=== PATIENT | female | born 1985 | race Caucasian/White ===

== ENCOUNTER 2017-01-26 21:28 | Emergency (ER) | payer OTHER ==
[~2017-01-26] VITALS: Ht 152.4 cm; Wt 59.1 kg
[~2017-01-26 21:28] MED LIST: ALBU8.5H4 IH; BUDE90AE IH; CRES20T PO; DILT120C10 PO; LACT1CAP61 PO; MESA1.2T2 PO; OMEP40CA3 PO; [UNRECOGNIZED DRUG - OTHER]
[2017-01-26 21:34] VITALS: BP 111/66; PULSE 102; RESP 20; O2SAT 96
[2017-01-26 22:00] VITALS: BP 111/53; PULSE 91; RESP 16; O2SAT 95
[2017-01-26 22:24] LABS: BASOPHILS % (AUTO) 0.3 % (0-3); EOSINOPHILS % (AUTO) 1.3 % (0-5); MONOCYTES % (AUTO) 6.8 % (4-12); Mean Corpuscular Hemoglobin 30.7 pg (27.0-35.0); Mean Corpuscular Volume 89.6 fL (81-100); NEUTROPHILS % (AUTO) 84.4 % (40-74); Platelet Count 295 bil/L (150-400)
[2017-01-26 22:48] LABS: Magnesium 1.8 mg/dL (1.6-2.6)
--- NOTE | 2017-01-26 23:41 | ED.REPORT ---
HPI-Abd Pain F Under 38 Date of Service January 26, 2017 ED Provider: Rodolfo Grijalva MD Patient is a 31 year old female with history of ulcerative colitis since age 15 , she is on Mesalamine (Lialda), 4.8g daily, who presents to [facility] with bloody diarrhea, fever and abdominal cramping since this morning. Patient reports last flare about 2 months ago. She states she has not had a formed stool for about 2 weeks. She also states that she felt absolutely fine yesterday, but this morning she woke up with fever of 101F, muscle and joint pain, increased abdominal cramping and karla rectal bleeding. Patient stated she does not believe that her symptoms are well controlled with Mesalamine. Patient notes that her ulcerative colitis flares are associated with increased anxiety and heart rate. She also experiences heart burn, gas, and bloating for which she takes a Omeprazole daily. She denies any recent weight loss or skin rashes, but reports regular joint pain in her hands and hips. Patient denies headache, chest pain, shortness of breath, vomiting, dysuria. Nursing Notes Stated Complaint: GI BLEED,PAIN AND FEVER Chief Complaint: Female Abdominal Pain Nursing Notes Reviewed: Yes Allergies: Coded Allergies: acetaminophen (Verified Allergy, Severe, upset stomach, GI bleed, 12/15/15) hydrocodone bitartrate (Verified Allergy, Severe, upset stomach, GI bleed , 12/15/15) TAPE (Verified Allergy, Intermediate, rash that looks like a burn, 12/15/15 ) Scheduled Budesonide (Pulmicort Flexhaler) 1 Puff/90 Mcg Aerp 2 PUFF IH BID Diltiazem ER (Diltiazem ER) 120 Mg Cap.er.12h 120 MG PO DAILY Lact Cmb2/S.thermophl/Bif Cmb1 (Vsl#3 Capsule) 1 Each Capsule 1 EACH PO BID Mesalamine (Lialda) 1.2 Gm Tablet.dr 1.2 GM PO BID Omeprazole (Prilosec) 40 Mg Capsule.dr 40 MG PO DAILY Rosuvastatin Calcium (Crestor) 20 Mg Tablet 20 MG PO DAILY Scheduled PRN Albuterol HFA (Albuterol HFA) 8.5 Gm Hfa.aer.ad 1 PUFF IH Q4 PRN PRN For Cough Miscellaneous Medications ([centrazine]) General Time Seen by MD: 22:14 Chief Complaint Abdominal pain, Rectal bleeding, Other Hx Obtained From: Patient Arrived By: Walk-in Sudden in Onset?: Yes Onset Occurred: 13 - 16 hours ago Context of Onset: Other (After two weeks of constant loose stool) Symptom Duration: Intermittent Progression since Onset: Intermittent Location: : Diffuse Quality: Cramping Severity: Current: Moderate Recent Healthcare: Recent doctor visit Past Medical History Ulcerative colitis GERD Asthma Past Surgical History Reports: (2) Smoking History Never Smoker Social History Alcohol Use: Denies alcohol use Drug Use: Denies drug use Other Social History: Ambulatory Status Independent Review of Systems A comprehensive review of systems has been conducted with the patient and was found to be negative except what is mentioned in the history of present illness. Physical Exam Initial Vital Signs Vital Signs (First) Date Time Temp Pulse Resp B/P Pulse Ox O2 Delivery O2 Flow Rate FiO2 01/26/17 21:34 37.5 102 20 111/66 96 Room Air Initial VS: Reviewed, Vital signs normal Head / Eyes: Atraumatic, Normocephalic, PERRL ENT: Mucous membranes moist, Conjunctiva normal, No scleral icterus Neck: Supple, Non-tender, Full range of motion Lymphatic: No lymphadenopathy Extremities: Vascular intact, Neuro intact, No swelling, No tenderness Skin: Warm, Dry, No cyanosis Neurologic: Alert, Oriented, Nonfocal Psychiatric: Mood/affect normal, Behavior normal, Normal thought content General/Constitutional: Awake, Alert, No acute distress, Well developed, Well nourished Respiratory / Chest: Breath sounds NL, No respiratory distress, No rales, No rhonchi, No wheezing Cardiovascular: Heart rate NL, Regular rhythm, Pulses = bilaterally Interpretation & Diagnostics Lab Results Interpretation Result Diagram: 01/26/17215501/26/172155 Test 01/26/17 21:56 White Blood Count 15.0th/mm3 (3.8-10.1) Red Blood Count 4.23mil/mm3 (3.90-5.20) Hemoglobin 13.0g/dL (12.0-15.6) Hematocrit 37.9% (35.0-46.0) Mean Corpuscular Volume 89.6fL (81-100) Mean Corpuscular Hemoglobin 30.7pg (27.0-35.0) Mean Corpuscular Hemoglobin Concent 34.3% (32.0-37.0) Red Cell Distribution Width 12.6% (12.3-15.4) Platelet Count 295bil/L (150-400) Neutrophils (%) (Auto) 84.4% (40-74) Lymphocytes (%) (Auto) 6.9% (14-46) Monocytes (%) (Auto) 6.8% (4-12) Eosinophils (%) (Auto) 1.3% (0-5) Basophils (%) (Auto) 0.3% (0-3) Urine Color Straw (YELLOW) Urine Appearance Clear (CLEAR,HAZY) Urine pH 6.0 (5.0-8.0) Urine Specific Hensley 1.004 (1.003-1.035) Urine Protein Negativemg/dL (NEG,TRACE) Urine Glucose (UA) Negativemg/dL (NEGATIVE) Urine Ketones Negativemg/dL (NEGATIVE) Urine Occult Blood Negative (NEGATIVE) Urine Nitrite Negative (NEGATIVE) Urine Bilirubin Negative (NEGATIVE) Urine Urobilinogen Normalmg/dL (NORMAL) Urine Leukocyte Esterase Negative (NEGATIVE) Urine RBC 0-2/hpf (0-2) Urine WBC 0-5/hpf (0-5) Urine Epithelial Cells Few/hpf (NONE-MOD) Urine Crystals None seen (NONE SEEN) Urine Bacteria None/hpf (NONE-FEW) Urine Hyaline Casts None/lpf (NONE) Urine Granular Casts None seen (NONE SEEN) Urine Waxy Casts None seen (NONE SEEN) Urine Red Blood Cell Casts None seen (NONE SEEN) Urine White Blood Cell Casts None seen (NONE SEEN) Urine Mucus None seen (None Seen) Urine Trichomonas None seen (NONE SEEN) Urine Yeast None (NONE SEEN) Urine Culture Reflexed Not indicated Hold Urine Received (Received) Sodium Level 141mEq/L (134-144) Potassium Level 3.4mEq/L (3.5-5.2) Chloride Level 103mEq/L (97-108) Carbon Dioxide Level 23mmol/L (18-29) Blood Urea Nitrogen 13mg/dL (6-20) Creatinine 0.56mg/dL (0.57-1.00) Estimat Glomerular Filtration Rate 179mL/min (>59) Glucose Level 120mg/dL (60-99) Calcium Level 9.5mg/dL (8.5-10.1) Magnesium Level 1.8mg/dL (1.6-2.6) Total Bilirubin 0.4mg/dL (0.0-1.2) Aspartate Amino Transf (AST/SGOT) 19U/L (0-50) Alanine Aminotransferase (ALT/SGPT) 17U/L (0-32) Alkaline Phosphatase 60U/L (25-150) Total Protein 7.3g/dL (6.4-8.4) Albumin 4.5g/dL (3.4-5.0) Lipase 17U/L (13-60) Lab Results Interpretation: Elevated white blood count Negative UA Negative chest x-ray Re-Eval/Medical Decision Med Decision/Clinical Course In summary, this is a 31-year-old female history of ulcerative colitis, on mesalamine daily, who presented to [facility] ER with bloody diarrhea, fever and abdominal cramping. On presentation patient was tachycardic with heart rate of 102. Blood work was significant for white blood count of 15. Stool PCR, blood and urine cultures and chest x-ray are ordered and pending. Patient has been discussed with Dr. Andersen, gastroenterology, who advised not to put patient on prednisone at this moment, until infectious work up is complete. Counseled Regarding: Diagnosis, Lab results, Need for follow-up Discharge & Departure Primary Impression: Ulcerative colitis with rectal bleeding Ulcerative colitis location: unspecified ulcerative colitis location Qualified Code: K51.911 - Ulcerative colitis, unspecified with rectal bleeding Additional Impression: Gastroenteritis Disposition: Home Discharge Condition All VS Reviewed: Yes Condition: Stable Patient Instructions: Ulcerative Colitis (GEN) Additional Instructions: There is no evidence at this point of an associated infection. The stool PCR test will be run first thing in the morning and we should have an answer by noon. The GI organizational research consultant monique recommended no change in your therapy at the present time. Follow-up as planned with Dr. Tran for followup and endoscopy. Referrals: Linus Solis MD (PCP) Amber Tran MD EDSupervising Provider for APC: Rodolfo Grijalva MD Attending Statment The patient was seen and examined together with Dr. Ansley Serna and I agree with the history, exam and plan as outlined in the note above. copies to: Linus Solis MD, Oksana S DO January 26, 2017 23:41 Rodolfo Grijalva MD January 27, 2017 00:05
[2017-01-26 23:47] LABS: APPEARANCE,URINE CLEAR (CLEAR,HAZY); COLOR,URINE STRAW (YELLOW); OCCULT BLOOD,URINE NEGATIVE (NEGATIVE); UROBILINOGEN,URINE NORMAL (NORMAL)
[2017-01-27 01:00] VITALS: PULSE 77; RESP 21; O2SAT 98
[2017-01-27 02:08] VITALS: BP 109/45; PULSE 81; RESP 18; O2SAT 97
--- NOTE | 2017-01-27 08:10 | DRSVH ---
PROCEDURE: X-RAY CHEST ONE VIEW, PORTABLE ([id number]) INDICATIONS: Fever, high WBC TECHNIQUE: One view of the chest was acquired. COMPARISON: None. FINDINGS: Surgical changes and devices: None. Lungs and pleura: No pleural effusions or pneumothorax. Lungs are clear. Mediastinum: Mediastinal contours appear normal. Heart size is normal. Bones and chest wall: No suspicious bony lesions. Overlying soft tissues appear unremarkable. IMPRESSION: No acute disease. Dictated by: Marc Cat M.D. on 01/27/2017 at 8:08 Approved by: Marc Cat M.D. on 01/27/2017 at 8:08
[2017-01-29] MEDS ORDERED: CALC600T12 PO (16:10)
[2017-01-29] MEDS ORDERED: OMEG1CAP56 PO (16:10)
[2017-01-29] MEDS ORDERED: UBID1CAP2 PO (16:10)
[2017-01-29] MEDS ORDERED: MULT-666 PO (16:10)
== END 2017-01-27 02:11 | disposition home or self-care (01) ==
LOC: SED 21:28
DX: K51.911 Ulcerative colitis, unspecified with rectal bleeding (principal); K21.9 Gastro-esophageal reflux disease without esophagitis; J45.909 Unspecified asthma, uncomplicated; Z79.51 Long term (current) use of inhaled steroids; Z88.5 Allergy status to narcotic agent; Z88.6 Allergy status to analgesic agent

== ENCOUNTER 2017-01-31 11:35 | Day surgery (SDC) | payer OTHER ==
[~2017-01-31] VITALS: Ht 152.4 cm; Wt 59.0 kg
[~2017-01-31 11:35] MED LIST changes: +0.9% Sodium Chloride 1,000 ML IV SCH; +CALC600T12 PO; +MULT-666 PO; +OMEG1CAP56 PO; +Sodium Chloride LOK Flush 10 mL Syringe IV PRN; +UBID1CAP2 PO; +fentaNYL-PF 50 mCg/mL 2 mL Inj IVPUSH PRN
[2017-01-31 13:30] VITALS: BP 11/62; PULSE 69; RESP 14; O2SAT 99
[2017-01-31 14:45] VITALS: BP 101/51; PULSE 63; RESP 16; O2SAT 99
[2017-01-31 14:55] VITALS: BP 89/54; PULSE 58; RESP 16; O2SAT 100
[2017-01-31 15:05] VITALS: BP 91/53; PULSE 75; RESP 16; O2SAT 100
--- NOTE | 2017-02-01 03:05 | ENDO ---
[address] [address] ENDOSCOPY PROCEDURE PATIENT: CORNELIO ORTIZ : 1985 MR#: [id number] ADMIT: 01/31/2017 JOB ID: [id number] PROCEDURE: Colonoscopy. INDICATION: Patient with a history of ulcerative proctosigmoiditis. Patient's ASA classification is 2. Mallampati score is 2. MEDICATIONS: 1. Versed 6 mg. 2. Fentanyl 100 mcg. INSTRUMENT USED: PCF H 180 AL. PREP QUALITY: Fair. PROCEDURE DETAILS: After informed consent was obtained, the patient was brought to the GI suite, where she was placed on oxygen via nasal cannula and monitored with continuous pulse oximeter, telemetry and blood pressure monitoring. A time-out was performed. Then, she was placed in the left lateral decubitus position and medications were administered for sedation. Digital rectal exam was performed and was unremarkable. The colonoscope was then inserted into the rectum and advanced under direct visualization to the terminal ileum which was identified by the presence of the ileocecal valve and appendiceal orifice. Once the terminal ileum was reached, the colonoscope was withdrawn back to the rectum as the mucosa and lumen were examined. In the rectum, retroflexion was performed. Following retroflexion, remaining air in the rectum was suctioned, and procedure was completed. FINDINGS: 1. Normal appearing terminal ileum. Multiple random biopsies were obtained. 2. From approximately 30 cm to the rectum, the mucosa had an edematous appearance with erythema, friability, ulceration and exudate, consistent with colitis. 3. Multiple random biopsies were obtained throughout the entire colon. 4. Retroflexion was not performed in the rectum secondary to the inflammation. IMPRESSION: Proctosigmoiditis. RECOMMENDATIONS: 1. Await biopsy results. 2. We will start hydrocortisone enemas. We will review lab tests and may need to consider starting her on azathioprine versus 6-MP for better control of her proctosigmoiditis as Lialda 4.8 g daily has been ineffective. COMPLICATIONS: None. ESTIMATED BLOOD LOSS: Less than 5 mL.
--- NOTE | 2017-02-04 07:29 | PATH ---
SURGICAL PATHOLOGY Attending Physician:Lalo Bashir CASE STATUS: Signed Out PATIENT NAME: CORNELIO ORTIZ PID: [id number] : 1985 DATE COLLECTED:01/31/2017 00:00 SPECIMEN: 1: Ileum, Biopsy 2: Colon, Biopsy 3: Colon, Biopsy 4: Colon, Biopsy 5: Colon, Biopsy 6: Rectum, Biopsy CLINICAL HISTORY: PERSONAL HISTORY OF ULCERATIVE COLITIS 1). TERMINAL ILEUM BIOPSY 2). RIGHT COLON BIOPSY 3). TRANSVERSE COLON BIOPSY 4). LEFT COLON BIOPSY 5). SIGMOID COLON BIOPSY 6). RECTAL BIOPSY FINAL DIAGNOSIS: 1.TERMINAL ILEUM BIOPSY: FRAGMENTS OF SMALL BOWEL CONSISTENT WITH NORMAL TERMINAL ILEUM. Negative for granulomas. Negative for significant inflammation, dysplasia and malignancy. 2.RIGHT COLON BIOPSY: FRAGMENTS OF NORMAL-APPEARING COLON MUCOSA. Negative for significant architectural distortion. Negative for significant inflammation, dysplasia and malignancy. 3.TRANSVERSE COLON BIOPSY: FRAGMENTS OF COLON MUCOSA WITH FOCI OF ARCHITECTURAL DISTORTION CONSISTENT WITH QUIESCENT CHRONIC COLITIS. Negative for dysplasia and malignancy. 4.LEFT COLON BIOPSY: FRAGMENTS OF COLON MUCOSA WITH FOCAL AREAS OF ARCHITECTURAL DISTORTION CONSISTENT WITH CHRONIC QUIESCENT COLITIS. Negative for dysplasia and malignancy. 5.SIGMOID COLON BIOPSY: CHANGES OF CHRONIC ACTIVE COLITIS. Negative for dysplasia and malignancy. 6.RECTAL BIOPSY: CHRONIC ACTIVE COLITIS WITH ULCERATION. Negative for dysplasia and malignancy. ICD10 code K51.9 GROSS DESCRIPTION: The specimen is received in six formalin filled containers labeled with the patient's name. 1). The specimen is sublabeled " TI " and consists of 2 portions of tissue which aggregate to 0.3 x 0.3 x 0.2 CM. The specimen is entirely submitted in cassette 1A. 2). The specimen is sublabeled "right colon" and consists of 4 portions of tissue which aggregate to 0.4 x 0.4 x 0.2 CM. The specimen is entirely submitted in cassette 2A. 3). The specimen is sublabeled "transverse colon" and consists of 3 portions of tissue which aggregate to 0.3 x 0.3 x 0.2 CM. The specimen is entirely submitted in cassette 3A. 4). The specimen is sublabeled "left colon" and consists of 3 portions of tissue which aggregate to 0.3 x 0.3 x 0.2 CM. The specimen is entirely submitted in cassette 4A. 5). The specimen is sublabeled "sigmoid colon" and consists of 4 portions of tissue which aggregate to 0.3 x 0.3 x 0.3 CM. The specimen is entirely submitted in cassette 5A. 6). The specimen is sublabeled "rectal" and consists of 3 portions of tissue which aggregate to 0.3 x 0.2 x 0.2 CM. The specimen is entirely submitted in cassettes 6A. 02/01/2017 DAC MICRO DESCRIPTION: See diagnosis. ICD-9 CODES: CPT CODES: 1: 83174 2: 32022 3: 66422 4: 64001 5: 51251 6: 78804 Electronically Signed Out Leno Alan MD Merged With [facility] Pathology [facility] [address], [place] [address] Technical component performed at [facility], [facility] [address], [place], [address]
== END 2017-01-31 23:59 | disposition home or self-care (01) ==
LOC: END 11:35
PROVIDERS: ATTEND Internal Medicine Gastroenterology
DX: K51.30 Ulcerative (chronic) rectosigmoiditis without complications (principal); J45.909 Unspecified asthma, uncomplicated; K21.9 Gastro-esophageal reflux disease without esophagitis
CPT/HCPCS: 45380; 99153; G0500; J7030